=== PATIENT | male | born 1945 | race African-American/Black ===

== ENCOUNTER 2018-06-27 20:01 | Inpatient (IN) | payer MEDICARE, BC ==
[~2018-06-27] VITALS: Ht 172.7 cm; Wt 70.3 kg
[2018-06-27] MEDS ORDERED: PIPERACILLIN/TAZ 3.375G PREMIX 50 ML IV ONE (23:00)
[2018-06-27] MEDS ORDERED: VANCOMYCIN 1 G PREMIX 200 ML IV ONE (23:00)
[2018-06-27 23:08] LABS: HEMATOCRIT. 27.7 % (42.0-52.0); HEMOGLOBIN. 9.4 g/dL (14.0-18.0); MEAN CORPUSCULAR HEMOGLOBIN 30.5 pg (28.0-32.0); MEAN CORPUSCULAR VOLUME 89.7 fL (80.0-94.0); MEAN PLATELET VOLUME 6.7 fl (7.4-10.4); PLATELET 180 x1000/uL (130-400); RED BLOOD CELL COUNT 3.09 mill/uL (4.7-6.1); RED CELL DISTRIBUTION WIDTH 19.1 % (11.6-14.6)
[2018-06-27 23:14] LABS: CHLORIDE 99 mEq/L (98-107)
[2018-06-27 23:14] LABS: BG BASE EXCESS 7.3 mmol/L (-2.0-2.0); BG CARBOXYHEMOGLOBIN 0.7 % (0.5-1.5); BG DEOXYHEMOGLOBIN 2.9 % (0.0-5.0); BG FRACTION INSPIRED OXYGEN 28; BG METHEMOGLOBIN 0.3 % (0.0-1.5); BG OXYGEN SATURATION 97.1 % (92.0-98.5); BG OXYHEMOGLOBIN 96.1 % (94.0-97.0); BG PCO2 35.1 mmHg (35.0-45.0); BG PH 7.549 (7.350-7.450); BG PO2 92.2 mmHg (75.0-100.0); BG SAMPLE SITE LEFT RADIAL; BG TOTAL HEMOGLOBIN 10.5 g/dL (12.0-18.0); BG VENT MODE NASAL CANNULA
[2018-06-27 23:16] LABS: INR 1.2; PARTIAL THROMBOPLASTIN TIME 30.2 sec (23.4-31.0); PROTHROMBIN TIME 11.9 sec (9.1-11.1)
[2018-06-27 23:28] LABS: PLATELET ESTIMATE NORMAL
[2018-06-28] MEDS ORDERED: ACETAMINOPHEN 325MG TABLET PO PRN (03:00)
[2018-06-28] MEDS ORDERED: GUAIFENESIN 200MG/10ML SUGAR FREE UDC PO PRN (03:00)
[2018-06-28] MEDS ORDERED: VANCOMYCIN 1 G PREMIX 200 ML IV SCH (03:00)
[2018-06-28] MEDS ORDERED: IPRATROPIUM/ALBUTEROL 0.5-3(2.5)MG/3ML NEB INH PRN (03:00)
[2018-06-28] MEDS ORDERED: CLONIDINE 0.1MG TABLET PO PRN (03:00)
[2018-06-28] MEDS ORDERED: LORAZEPAM 0.5MG TABLET PO PRN (03:00)
[2018-06-28] MEDS ORDERED: ONDANSETRON HCL 4MG/2ML INJ IV PRN (03:00)
[2018-06-28] MEDS ORDERED: DIPHENHYDRAMINE 50MG/ML VIAL IV PRN (03:00)
[2018-06-28] MEDS ORDERED: PIPERACILLIN/TAZ 3.375G PREMIX 50 ML IV SCH (03:00)
[2018-06-28] MEDS ORDERED: PIPERACILLIN/TAZ 2.25G PREMIX 50 ML IV NR (20:15)
[2018-06-28 23:45] VITALS: BP 159/59
[2018-06-29] VITALS: BP 159/59
[2018-06-29] MEDS ORDERED: ASPI-1159 PO (00:40)
[2018-06-29] MEDS ORDERED: FOLI-43 PO (00:45)
[2018-06-29] MEDS ORDERED: LISI40TA4 PO (00:50)
[2018-06-29] MEDS ORDERED: SEVE800T8 PO (00:50)
[2018-06-29] MEDS ORDERED: AMI2 PO (00:50)
[2018-06-29] MEDS ORDERED: NIFE20CA PO (00:50)
[2018-06-29] MEDS ORDERED: FAMO-135 PO (00:52)
[2018-06-29] MEDS ORDERED: ROSU5TAB PO (00:52)
[2018-06-29] MEDS ORDERED: LEVVL SQ (00:55)
[2018-06-29 04:00] VITALS: BP 142/63
[2018-06-29] MEDS: SODIUM CHLORIDE 0.9% INJ 3ML FLUSH IVF SCH ×2 (06:50→20:35)
[2018-06-29 08:00] VITALS: BP 152/57
[2018-06-29] MEDS: PIPERACILLIN/TAZ 2.25G PREMIX 50 ML IV SCH ×2 (08:26→20:35)
[2018-06-29] MEDS: ENOXAPARIN 30MG/0.3ML SYR SUBCUT SCH (11:20)
[2018-06-29 12:00] VITALS: BP 132/41
[2018-06-29 20:00] VITALS: BP 160/63
[2018-06-30] VITALS: BP 146/59
[2018-06-30 04:00] VITALS: BP 159/56
[2018-06-30] MEDS: SODIUM CHLORIDE 0.9% INJ 3ML FLUSH IVF SCH (06:35)
[2018-06-30 08:00] VITALS: BP 143/49
[2018-06-30] MEDS: PIPERACILLIN/TAZ 2.25G PREMIX 50 ML IV SCH (09:18)
[2018-06-30] MEDS: ENOXAPARIN 30MG/0.3ML SYR SUBCUT SCH (09:18)
[2018-06-30] MEDS ORDERED: VANCOMYCIN 1 G PREMIX 200 ML IV NR (10:00)
[2018-06-30 11:06] VITALS: BP 143/75
== END 2018-06-30 11:45 | disposition home or self-care (01) | DRG 70 ==
LOC: ER 20:01 → 7WST 06-28 00:01 → EDBEDREQTM 06-28 00:09 → EDBEDREQ 06-28 00:09 → EDBEDREQSVC 06-28 00:09 → EDBEDREQDT 06-28 00:09 → ENRESERV 06-28 23:15
PROVIDERS: ADMIT Internal Medicine; ATTEND Internal Medicine
PROC: 5A1D70Z Performance of Urinary Filtration, Intermittent, Less than 6 Hours Per Day (ICD-10-PCS; principal; 2018-06-30)
DX: G93.41 Metabolic encephalopathy (principal); N18.6 End stage renal disease; E44.0 Moderate protein-calorie malnutrition; I13.2 Hypertensive heart and chronic kidney disease with heart failure and with stage 5 chronic kidney disease, or end stage renal disease; D64.9 Anemia, unspecified; E11.22 Type 2 diabetes mellitus with diabetic chronic kidney disease; G30.9 Alzheimer's disease, unspecified; F02.80 Dementia in other diseases classified elsewhere, unspecified severity, without behavioral disturbance, psychotic disturbance, mood disturbance, and anxiety; I50.9 Heart failure, unspecified; Z99.2 Dependence on renal dialysis; Z79.82 Long term (current) use of aspirin; Z79.4 Long term (current) use of insulin; Z79.899 Other long term (current) drug therapy; Z68.23 Body mass index [BMI] 23.0-23.9, adult
CPT/HCPCS: 36415; 36600; 71045; 80202; 82375; 82805; 82962; 83605; 83880; 84145; 84443; 84484; 86850; 86900; 93005; 93970; 96365; 96366; 96368; 97162; 99291; A6261; J1650; J2543; J3370; J7050